=== PATIENT | male | born 1945 ===

== ENCOUNTER 2017-12-03 08:30 | Outpatient (CLI) | payer OTHER ==
[~2017-12-03] VITALS: Ht 167.6 cm; Wt 88.5 kg
== END 2017-12-03 08:45 | disposition home or self-care (01) ==
LOC: OFIC 805 08:30
DX: H61.22 Impacted cerumen, left ear (principal); J30.89 Other allergic rhinitis; J32.8 Other chronic sinusitis; H90.3 Sensorineural hearing loss, bilateral

== ENCOUNTER → 2017-12-05 | Outpatient (CLI) | payer OTHER | END | disposition home or self-care (01) | LOC: TOM 13:31 | DX: J32.4 Chronic pansinusitis (principal) ==

== ENCOUNTER 2018-01-27 10:05 | Outpatient (CLI) | payer OTHER ==
[~2018-01-27] VITALS: Ht 152.4 cm; Wt 88.5 kg
== END 2018-01-27 10:20 | disposition home or self-care (01) ==
LOC: OFIC 805 10:05
DX: J32.8 Other chronic sinusitis (principal); J30.89 Other allergic rhinitis